=== PATIENT | female | born 1975 | race Caucasian/White ===

== ENCOUNTER 2018-05-31 00:02 | Emergency (ER) | payer OTHER ==
[2018-05-31 00:16] VITALS: BP 155/84; PULSE 71; TEMP 98.1; BMI 30.1
[2018-05-31] MEDS ORDERED: ONDANSETRON 4 MG/2 ML VIAL IVPUSH STA (00:21)
[2018-05-31] MEDS ORDERED: SODIUM CHLORIDE 1,000 ML IV STA (00:21)
--- NOTE | 2018-05-31 00:21 | PDOC ---
History of Present Illness - General Chief Complaint: Urinary Problem Stated Complaint: PAIN Time Seen by Provider: 05/31/18 00:12 History Source: Patient Exam Limitations: No Limitations - History of Present Illness Travel History: No Timing/Duration: reports: intermittent Quality: reports: moderate (pt has suprapubic discomfort and has had some urinary retention recently,however she was able to urinate this evening.She was seen herein March and has kidneys and is followed by a urologist .) Abdominal Pain Onset Location: reports: suprapubic Pain Radiation: reports: no radiation Activities at Onset: reports: none Aggravating Factors: improves with: None Alleviating Factors: improves with: None Past History - Past Medical History Allergies/Adverse Reactions: Allergies Allergy/AdvReac Type Severity Reaction Status Date / Time No Known Allergies Allergy Verified 05/31/18 00:09 Home Medications: Ambulatory Orders Acetaminophen [Tylenol] 650 mg PO PRN 04/20/18 Amox-Tr/K Cl [Augmentin - 875Mg Tablet] 1 tab PO BID #14 tablet 04/20/18 Fluticasone Prop 0.05% Nasal [Flonase -] 1 - 2 spray NS DAILY #1 spray.pump COPD: No - Surgical History Abdominal Surgery: Yes (abd hernia) Cholecystectomy: Yes Gastric Stapling: Yes (bypass 02/27/18) - Suicide/Smoking/Psychosocial Hx Smoking History: Never smoked Have you smoked in the past 12 months: No Hx Alcohol Use: No Drug/Substance Use Hx: No Review of Systems - Review of Systems Able to Perform ROS?: Yes Is the patient limited Amharic proficient: No Constitutional: No: Symptoms Reported, See HPI, Chills, Diaphoresis, Fever, Loss of Appetite, Malaise, Night Sweats, Weakness, Weight Stable, Unintentional Wgt. Loss, Unexplained wgt Loss, Other HEENTM: No: Symptoms Reported, See HPI, Eye Pain, Blurred Vision, Tearing, Recent change in vision, Double Vision, Cataracts, Ear Pain, Ocular Prothesis, Ear Discharge, Nose Pain, Nose Congestion, Tinnitus, Nose Bleeding, Hearing Loss , Throat Pain, Throat Swelling, Mouth Pain, Dental Problems, Difficulty Swallowing, Mouth Swelling, Other Respiratory: No: Symptoms reported, See HPI, Cough, Orthopnea, Shortness of Breath, SOB with Exertion, SOB at Rest, Stridor, Wheezing, Productive cough, Hemoptysis, Other Cardiac (ROS): No: Symptoms Reported, See HPI, Chest Pain, Edema, Irregular Heart Rate, Lightheadedness, Palpitations, Syncope, Chest Tightness, Other ABD/GI: No: Symptoms Reported, See HPI, Abdominal Distended, Abd. Pain w/ defecation, Blood Streaked Bowels, Constipated, Diarrhea, Difficulty Swallowing , Nausea, Poor Appetite, Poor Fluid Intake, Rectal Bleeding, Vomiting, Indigestion, Abdominal cramping, Tarry Stools, Other : Yes: Burning, Dysuria Musculoskeletal: No: Symptoms Reported, See HPI, Back Pain, Gout, Joint Pain, Joint Swelling, Muscle Pain, Muscle Weakness, Neck Pain, Joint Stiffness, Other Integumentary: No: Symptoms Reported, See HPI, Bruising, Change in Color, Change in Hair/Nails, Dryness, Erythema, Flushing, Lesions, Lumps, Pallor, Pruritus, Rash, Sweating, Other Neurological: No: Symptoms reported, See HPI, Headache, Numbness, Paresthesia, Pre-Existing Deficit, Seizure, Tingling, Tremors, Weakness, Unsteady Gait, Ataxia, Dizziness, Other Endocrine: No: Symptoms Reported, See HPI, Excessive Sweating, Flushing, Intolerance to Cold, Intolerance to Heat, Increased Hunger, Increased Thirst, Increased Urine, Unexplained Weight Gain, Unexplained Weight Loss, Change in Weight, Other *Physical Exam - Vital Signs Last Vital Signs Temp Pulse Resp BP Pulse Ox 98.1 F 71 18 155/84 99 05/31/18 00:07 05/31/18 00:07 05/31/18 00:07 05/31/18 00:07 05/31/18 00:07 - Physical Exam General Appearance: Yes: Nourished, Appropriately Dressed HEENT: positive: EOMI, EBENEZER, Normal Voice Neck: positive: Supple Respiratory/Chest: positive: Lungs Clear Cardiovascular: positive: Regular Rhythm, Regular Rate Gastrointestinal/Abdominal: positive: Soft, Other (mild suprapubic pain) Musculoskeletal: positive: Normal Inspection Extremity: positive: Normal Inspection, Normal Range of Motion Integumentary: positive: Normal Color, Warm Neurologic: positive: Fully Oriented, Alert, Motor Strength 5/5 ED Treatment Course - LABORATORY CBC & Chemistry Diagram: 05/31/18 00:53 05/31/18 00:53 Medical Decision Making - Medical Decision Making 05/31/18 02:01 negative preg UA negative chemistries are wnl cbc is wnl 05/31/18 02:02 no fever,no vomiting,no diarrhea pt does have kidney stone and has appt with her urologist imp renal colic plan keep you r appt w urologist 05/31/18 02:15 Patient's initial concern was her burning upon urination and then later decreasing urination. However, she was able to urinate here without any problem. No evidence of fever or chills or vomiting, or hematuria. At this time. She has a benign abdominal exam. She does have an appointment with the urologist and she will follow-up *DC/Admit/Observation/Transfer Diagnosis at time of Disposition: Renal colic, Dysuria - Discharge Dispostion Disposition: HOME Condition at time of disposition: Stable - Referrals - Patient Instructions Printed Discharge Instructions: DI for Dysuria -- Adult Additional Instructions: PLEASE KEEP YOUR APPOINTMENT WITH THE UROLOGIST Print Language: ROMANIAN - Post Discharge Activity
[2018-05-31] MEDS ORDERED: ONDANSETRON 4 MG/2 ML VIAL ONE (00:41)
[2018-05-31 01:08] LABS: BASO % 1.1 % (0-2.0); EOS % 1.8 % (0-4.5); HEMATOCRIT 33.8 % (32.4-45.2); HEMOGLOBIN 11.1 GM/dL (10.7-15.3); LYMPH % 56.3 % (8-40); MCH 28.4 pg (25.7-33.7); MCHC 32.7 g/dl (32.0-36.0); MEAN CELL VOLUME 86.9 fl (80-96); MONO % 9.4 % (3.8-10.2); NEUT % 31.4 % (42.8-82.8); PLATELET COUNT 133 K/MM3 (134-434); RBC 3.89 M/mm3 (3.60-5.2); RDW 17.2 % (11.6-15.6); WHITE BLOOD COUNT 5.4 K/mm3 (4.0-10.0)
[2018-05-31 01:33] LABS: ALBUMIN 3.4 g/dl (3.4-5.0); ALK PHOS 84 U/L (45-117); ANION GAP 4 MMOL/L (8-16); BILIRUBIN,TOTAL 0.3 mg/dL (0.2-1); BLOOD UREA NITROGEN 10 mg/dL (7-18); CALCIUM 8.2 mg/dL (8.5-10.1); CHLORIDE 109 mmol/L (98-107); CO2 26 mmol/L (21-32); CREATININE 0.6 mg/dL (0.55-1.3); GLUCOSE,RANDOM 73 mg/dL (74-106); POTASSIUM 4.6 mmol/L (3.5-5.1); SGOT/AST 26 U/L (15-37); SGPT/ALT 24 U/L (13-61); SODIUM 139 mmol/L (136-145); TOT PROT 6.5 g/dl (6.4-8.2)
[2018-05-31 01:39] LABS: URINE APPEARANCE CLEAR; URINE BILIRUBIN NEGATIVE (<2.0 mg/dL); URINE COLOR LTYELLOW; URINE GLUCOSE (UA) NEGATIVE (NEGATIVE); URINE KETONE NEGATIVE (NEGATIVE); URINE LEUK ESTERASE NEGATIVE (NEGATIVE); URINE NITRITE NEGATIVE (NEGATIVE); URINE PROTEIN NEGATIVE (NEGATIVE); URINE UROBILINOGEN NEGATIVE mg/dL (0.2-1.0)
[2018-05-31] MEDS ORDERED: PHENAZOPYRIDINE HCL 100 MG TABLET (FP) PO ONE (02:05)
[2018-05-31] MEDS ORDERED: PHENAZOPYRIDINE HCL 100 MG TABLET (FP) ONE (02:26)
[2018-05-31 05:17] LABS: PLATELET ESTIMATE SLT DECREASE
== END 2018-05-31 02:35 | disposition home or self-care (01) ==
LOC: JER 00:02
PROC: 3E033GC Introduction of Other Therapeutic Substance into Peripheral Vein, Percutaneous Approach (ICD-10-PCS; principal; 2018-05-31)
PROC: 3E0337Z Introduction of Electrolytic and Water Balance Substance into Peripheral Vein, Percutaneous Approach (ICD-10-PCS; 2018-05-31)
DX: R30.0 Dysuria (principal); N23 Unspecified renal colic
CPT/HCPCS: 36415; 80053; 81003; 84703; 85025; 99282-25; J7030

== ENCOUNTER 2021-10-13 08:48 | Emergency (ER) | payer OTHER ==
[2021-10-13 08:54] VITALS: BP 162/90; PULSE 63; TEMP 97.7; BMI 25.0
[2021-10-13] MEDS ORDERED: SODIUM CHLORIDE 1,000 ML IV STA (09:51)
[2021-10-13] MEDS ORDERED: MECLIZINE HCL 25 MG TABLET (FP) PO ONE (09:51)
[2021-10-13] MEDS ORDERED: MECLIZINE HCL 25 MG TABLET (FP) ONE (10:11)
[2021-10-13 10:41] LABS: EOS % 1.9 % (0-4.5); HEMATOCRIT 35.1 % (32.4-45.2); HEMOGLOBIN 11.5 GM/dL (10.7-15.3); LYMPH % 40.8 % (8-40); MCHC 32.8 g/dl (32.0-36.0); MEAN CELL VOLUME 88.5 fl (80-96); MONO % 10.8 % (3.8-10.2); NEUT % 45.5 % (42.8-82.8); PLATELET COUNT 173 10^3/uL (134-434); RBC 3.97 M/mm3 (3.60-5.2); RDW 15.9 % (11.6-15.6); WHITE BLOOD COUNT 3.4 K/mm3 (4.0-10.0)
[2021-10-13 11:06] LABS: ALBUMIN 3.9 g/dl (3.4-5.0); BLOOD UREA NITROGEN 14.2 mg/dL (7-18); CALCIUM 8.9 mg/dL (8.5-10.1)
[2021-10-13 11:09] LABS: CREATININE 0.5 mg/dL (0.55-1.3)
[2021-10-13 11:11] LABS: BILIRUBIN,TOTAL 0.3 mg/dL (0.2-1); TOT PROT 7.3 g/dl (6.4-8.2)
[2021-10-13 11:49] LABS: HCG,QUALITATIVE URINE Negative
[2021-10-13 12:01] LABS: URINE APPEARANCE CLEAR; URINE BILIRUBIN NEGATIVE (NEGATIVE); URINE COLOR YELLOW; URINE GLUCOSE (UA) NEGATIVE (NEGATIVE); URINE KETONE NEGATIVE (NEGATIVE); URINE LEUK ESTERASE NEGATIVE (NEGATIVE); URINE NITRITE NEGATIVE (NEGATIVE); URINE PROTEIN NEGATIVE (NEGATIVE); URINE UROBILINOGEN 0.2 mg/dL (0.2-1.0)
== END 2021-10-13 13:10 | disposition home or self-care (01) ==
LOC: JER 08:48
PROC: 3E0337Z Introduction of Electrolytic and Water Balance Substance into Peripheral Vein, Percutaneous Approach (ICD-10-PCS; principal; 2021-10-13)
DX: R42 Dizziness and giddiness (principal)
CPT/HCPCS: 36415; 80053; 81003; 82550; 84484; 84703; 85025; 86850; 86900; 86901; 93005; 93010; 96360; 99284-25

== ENCOUNTER 2022-03-13 00:15 | Emergency (ER) | payer OTHER ==
[2022-03-13 00:34] VITALS: BP 103/69; PULSE 64; TEMP 98.2; BMI 29.9
[2022-03-13] MEDS ORDERED: MECLIZINE HCL 25 MG TABLET (FP) PO ONE (01:08)
[2022-03-13] MEDS ORDERED: METOCLOPRAMIDE HCL INJECTION 10 MG/2 ML VIAL IVPUSH ONE (01:20)
[2022-03-13] MEDS ORDERED: MECLIZINE HCL 25 MG TABLET (FP) ONE (01:58)
[2022-03-13] MEDS ORDERED: METOCLOPRAMIDE HCL INJECTION 10 MG/2 ML VIAL ONE (01:59)
[2022-03-13 02:27] LABS: BASO % 0.8 % (0-2.0); HEMATOCRIT 31.6 % (32.4-45.2); HEMOGLOBIN 10.4 GM/dL (10.7-15.3); LYMPH % 25.7 % (8-40); MCH 29.2 pg (25.7-33.7); MCHC 32.9 g/dl (32.0-36.0); MEAN CELL VOLUME 88.8 fl (80-96); MEAN PLT VOLUME 10.2 fl (7.5-11.1); MONO % 8.4 % (3.8-10.2); NEUT % 64.1 % (42.8-82.8); PLATELET COUNT 141 10^3/uL (134-434); RBC 3.56 M/mm3 (3.60-5.2); WHITE BLOOD COUNT 4.8 K/mm3 (4.0-10.0)
[2022-03-13 03:02] LABS: CHLORIDE 110 mmol/L (98-107); SODIUM 140 mmol/L (136-145)
[2022-03-13 03:04] LABS: CALCIUM 8.2 mg/dL (8.5-10.1)
[2022-03-13 03:05] LABS: ALBUMIN 3.4 g/dl (3.4-5.0); ANION GAP 6 MMOL/L (8-16); BLOOD UREA NITROGEN 13.7 mg/dL (7-18); CO2 25 mmol/L (21-32); GLUCOSE,RANDOM 89 mg/dL (74-106)
[2022-03-13 03:08] LABS: CREATININE 0.5 mg/dL (0.55-1.3); SGOT/AST 19 U/L (15-37); SGPT/ALT 23 U/L (13-61)
[2022-03-13 03:10] LABS: BILIRUBIN,TOTAL < 0.1 mg/dL (0.2-1); TOT PROT 6.4 g/dl (6.4-8.2)
[2022-03-13 03:11] LABS: ALK PHOS 112 U/L (45-117)
== END 2022-03-13 06:05 | disposition home or self-care (01) ==
LOC: JER 00:15
PROC: 3E033NZ Introduction of Analgesics, Hypnotics, Sedatives into Peripheral Vein, Percutaneous Approach (ICD-10-PCS; principal; 2022-03-13)
DX: R42 Dizziness and giddiness (principal); R00.2 Palpitations; T88.7XXA Unspecified adverse effect of drug or medicament, initial encounter
CPT/HCPCS: 36415; 70450-TC; 80053; 84484; 84703; 85025; 93005; 93010; 99285-25

== ENCOUNTER 2023-01-27 14:12 | Emergency (ER) | payer OTHER ==
[2023-01-27 14:33] VITALS: BP 119/74; PULSE 65; RESP 16; TEMP 98.1; BMI 25.7
[2023-01-27] MEDS ORDERED: IBUPROFEN 600 MG TABLET (FP) PO ONE ×2 (15:41→16:07)
[2023-01-27] MEDS ORDERED: LACTATED RINGERS SOLUTION 1000 ML INFUS.BAG IV ONE (15:41)
[2023-01-27 16:28] LABS: BASO % 0.6 % (0-2.0); EOS % 0.5 % (0-4.5); HEMATOCRIT 35.3 % (32.4-45.2); HEMOGLOBIN 11.8 GM/dL (10.7-15.3); LYMPH % 30.4 % (8-40); MCH 28.9 pg (25.7-33.7); MCHC 33.4 g/dl (32.0-36.0); MEAN CELL VOLUME 86.5 fl (80-96); MONO % 10.6 % (3.8-10.2); NEUT % 57.9 % (42.8-82.8); PLATELET COUNT 225 10^3/uL (134-434); RBC 4.08 M/mm3 (3.60-5.2); WHITE BLOOD COUNT 7.7 K/mm3 (4.0-10.0)
[2023-01-27 16:36] LABS: PH,URINE 5.5 (5.0-8.0); URINE APPEARANCE CLEAR; URINE BILIRUBIN NEGATIVE (NEGATIVE); URINE COLOR YELLOW; URINE GLUCOSE (UA) NEGATIVE (NEGATIVE); URINE KETONE NEGATIVE (NEGATIVE); URINE LEUK ESTERASE NEGATIVE (NEGATIVE); URINE NITRITE NEGATIVE (NEGATIVE); URINE PROTEIN NEGATIVE (NEGATIVE); URINE UROBILINOGEN 0.2 mg/dL (0.2-1.0)
[2023-01-27 16:49] LABS: CHLORIDE 109 mmol/L (98-107); POTASSIUM 3.8 mmol/L (3.5-5.1); SODIUM 139 mmol/L (136-145)
[2023-01-27 16:53] LABS: ANION GAP 2 MMOL/L (8-16); CALCIUM 9.3 mg/dL (8.5-10.1); CO2 28 mmol/L (21-32)
[2023-01-27 16:55] LABS: CREATININE 0.8 mg/dL (0.55-1.3)
[2023-01-27 16:56] LABS: SGOT/AST 24 U/L (15-37); SGPT/ALT 24 U/L (13-61)
[2023-01-27 16:57] LABS: BILIRUBIN,TOTAL 0.3 mg/dL (0.2-1); TOT PROT 7.9 g/dl (6.4-8.2)
[2023-01-27 16:58] LABS: ALK PHOS 102 U/L (45-117)
[2023-01-27 17:08] LABS: GLUCOSE,RANDOM 46 mg/dL (74-106)
== END 2023-01-27 20:02 | disposition home or self-care (01) ==
LOC: JER 14:12
DX: R07.89 Other chest pain (principal); M79.605 Pain in left leg; R10.32 Left lower quadrant pain; N83.202 Unspecified ovarian cyst, left side
CPT/HCPCS: 36415; 76830-TC; 80053; 81003; 82962; 84484; 85025; 87086; 93005; 93010; 99285-25

== ENCOUNTER 2024-11-28 23:13 | Emergency (ER) | payer OTHER ==
[2024-11-28 23:19] VITALS: BP 152/81; PULSE 68; RESP 18; TEMP 97.7; BMI 25.0
[2024-11-29] MEDS ORDERED: ACETAMINOPHEN 325 MG TABLET (FP) ONE (00:13)
[2024-11-29] MEDS ORDERED: IBUPROFEN 400 MG TABLET (FP) PO ONE (00:13)
[2024-11-29] MEDS ORDERED: valACYclovir HCL 500 MG TABLET (FP) ONE (00:13)
[2024-11-29] MEDS: valACYclovir HCL 500 MG TABLET (FP) PO ONE (00:21)
[2024-11-29] MEDS: ACETAMINOPHEN 500 MG TABLET (FP) PO ONE (00:21)
[2024-11-29] MEDS: IBUPROFEN 600 MG TABLET (FP) PO ONE (00:21)
== END 2024-11-29 00:36 | disposition home or self-care (01) ==
LOC: JER 23:13
DX: R21 Rash and other nonspecific skin eruption (principal); B02.9 Zoster without complications
CPT/HCPCS: 99283-25